=== PATIENT | male | born 1975 | race Caucasian/White ===

== ENCOUNTER 2022-04-09 13:26 | Emergency (ER) | payer BC ==
[2022-04-09] MEDS ORDERED: Bacitracin Oint 1 GM U/D Packet TOP ONE (15:58)
== END 2022-04-09 16:08 | disposition home or self-care (01) ==
LOC: JP.ED 13:26
DX: S01.01XA Laceration without foreign body of scalp, initial encounter (principal); I10 Essential (primary) hypertension; Z88.0 Allergy status to penicillin; Z79.899 Other long term (current) drug therapy; W17.89XA Other fall from one level to another, initial encounter
CPT/HCPCS: 12001; 99282